=== PATIENT | female | born 1995 | race American Indian/Alaskan Native ===

== ENCOUNTER 2016-12-29 22:53 | Emergency (ER) | payer SELFPAY ==
[2016-12-29 23:00] VITALS: BP 128/102
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
[2016-12-29] MEDS ORDERED: Diphtheria,Pertussis(Acell),Tetanus Vaccine 0.5 ML SDV IM ONE (23:32)
[2016-12-29] MEDS ORDERED: ceFAZolin 1 GM in Premix Bag 1 BAG IV STA (23:38)
[2016-12-30] MEDS ORDERED: Lidocaine 1% 10 ML MDV INJECT ONE (01:48)
[2016-12-30] MEDS ORDERED: Acetaminophen 325 MG Tab PO STA (04:36)
--- NOTE | 2016-12-30 08:11 | CR ---
Left hand: Four views of the left hand were obtained. Soft tissue injury is identified. No fracture, dislocation or other bony abnormality is seen. Impression: 1. Soft tissue injury. No discrete bony abnormality is identified. Diagnostic code #2
== END 2016-12-30 05:02 | disposition home or self-care (01) ==
LOC: JD.ED 22:53
DX: S66.922A Laceration of unspecified muscle, fascia and tendon at wrist and hand level, left hand, initial encounter (principal); Z88.6 Allergy status to analgesic agent; F10.129 Alcohol abuse with intoxication, unspecified; X58.XXXA Exposure to other specified factors, initial encounter; Y90.0 Blood alcohol level of less than 20 mg/100 ml
CPT/HCPCS: 12004; 29125; 36415; 73130; 80053; 84703; 85025; 85610; 85730; 90471; 90715; 96365; 99284; A9270; G0480; J0690; 13132; 13133